=== PATIENT | female | born 1955 | race Caucasian/White ===

== ENCOUNTER → 2017-03-15 | Outpatient (CLI) | payer MEDICARE, MEDICAID ==
[~2017-03-15] MED LIST: ALBU2.5V7 AEROSOL; ALBU8.5H5 IH; ATOR20TA59 PO; BUDE10.2 PO; CALC600T12 PO; DESV100T PO; FURO40TA70 PO; GUAI-782 PO; INSU100V27 SQ; INSU100V8 SQ; LACT10SO PO; LORA-315 PO; MAGN400T31 PO; MIDO5TAB PO; OMEP40CA11 PO; POTA10TA14 PO; PRED20TA PO; PROP10TA10 PO; RANI-45 PO; RIFA550T5 PO; SPIR100T24 PO; TRAM50TA4 PO; [UNRECOGNIZED DRUG - CODE] PO
== END ==
LOC: WC.BC 13:10
DX: Z12.31 Encounter for screening mammogram for malignant neoplasm of breast (principal); N64.59 Other signs and symptoms in breast
CPT/HCPCS: 77063; G0202